=== PATIENT | female | born 1975 | race Caucasian/White ===

== ENCOUNTER 2024-08-19 15:18 | Outpatient (REF) | payer BC, SELFPAY ==
[2024-08-19 16:34] LABS: MANUAL DIFF FLAG NO
[2024-08-19 17:07] LABS: Basophils Percent Auto 0.5 % (0-2); Eosinophils Percent Auto 0.4 % (0-4); Hematocrit 37.2 % (37.0-47.0); Hemoglobin 12.6 g/dl (12.0-16.0); Imm Gran Abs Auto 0.02 X10*3/uL (0.00-0.03); Imm Gran Pct Auto 0.3 % (0.0-0.4); Lymphocytes Absolute Auto 2.1 X10*3/uL (1.2-4.9); Lymphocytes Percent Auto 28.7 % (20-40); Mean Corpuscular HGB Conc 33.9 g/dl (31.0-35.0); Mean Corpuscular Hemoglobin 29.4 pg (27.0-33.0); Mean Corpuscular Volume 86.7 fL (80.0-98.0); Mean Platelet Volume 9.8 fL (9.4-12.3); Monocytes Absolute Auto 0.5 X10*3/uL (0.1-1.2); Monocytes Percent Auto 6.3 % (2-11); Neutrophils Absolute Auto 4.6 x10*3/uL (2.0-8.3); Neutrophils Percent Auto 63.8 % (45-73); Platelet Count 293 X10*3/uL (160-400); Red Blood Count 4.29 X10*6/uL (4.20-5.50); Red Cell Distribution Width 12.5 % (11.0-16.0); White Blood Count 7.3 X10*3/uL (4.8-10.8)
[2024-08-19 17:46] LABS: Alanine Aminotransferase 17 U/L (0-31); Albumin Level 4.3 g/dL (3.5-5.0); Alkaline Phosphatase 68 U/L (39-117); Anion Gap 10 (12-20); Aspartate Amino Transferase 21 U/L (5-31); Bilirubin Total 0.2 mg/dL (0.0-1.0); Blood Urea Nitrogen 14 mg/dL (9-16); C Reactive Protein < 0.10 mg/dL (< or = 0.50); Calcium 9.1 mg/dL (8.4-10.2); Carbon Dioxide 25 mmol/L (22-29); Chloride 109 mmol/L (96-108); Estimated Glomerular Filt Rate > 60; Glucose Random 97 mg/dL (60-115); Sodium 140 mmol/L (135-145)
[2024-08-19 18:01] LABS: TSH reflex Free T4 2.51 uIU/mL (0.32-4.0)
[2024-08-21 20:03] LABS: Transglutaminase Ab IgG <1.0 U/mL; Transglutaminase IgA <1.0 U/mL
== END 2024-08-19 15:19 | disposition home or self-care (01) ==
LOC: HO.LAB 15:18
PROVIDERS: PCP Family Medicine; Visit Provider Nurse Practitioner
DX: Z01.818 Encounter for other preprocedural examination (principal); R19.7 Diarrhea, unspecified; Z91.09 Other allergy status, other than to drugs and biological substances
CPT/HCPCS: 36415; 80053; 84443; 85025; 86003; 86140; 86364

== ENCOUNTER 2024-08-19 15:18 | Outpatient (AMB) | payer BC, SELFPAY ==
--- NOTE | 2024-08-19 15:19 | A.OFFVIS_ITS ---
Vital Signs 08/19/24 15:24 Height 5 ft 4 in Weight 158 lb 11.725 oz BMI 27.2 BP 123/85 Blood Pressure Location Rt brachial Position Sitting Pulse 101 H Intake Visit Reasons: colonoscopy Intake Note: New patient in office today for colonoscopy screening. CC: Last colonoscopy per patient was 10 years ago at [facility] [place]. Patient was diagnosed with diverticulitis at that time. She is s/p anal fissure surgery last April at [facility] [place] w/ Dr. Ambriz. Patient also states that she has IBS. Frame Hand Required: No Accompanied by: Self / Same As Patient Allergies metronidazole [From Flagyl] Allergy (Intermediate, Verified 10/10/24 11:02) Rash sulfamethoxazole [From Bactrim] Allergy (Intermediate, Verified 10/10/24 11:02) Rash trimethoprim [From Bactrim] Allergy (Intermediate, Verified 10/10/24 11:02) Rash peppermint Adverse Reaction (Intermediate, Verified 10/10/24 11:02) Blister ERYTHROMYCIN Allergy (Severe, Uncoded 08/19/24 13:59) Anaphylaxis iodine contrast dye Allergy (Severe, Uncoded 08/19/24 15:29) Hives TINCTURE OF BENZOIN Allergy (Intermediate, Uncoded 08/19/24 13:59) Rash HPI HPI colonoscopy: Details: 49-year-old female here for preprocedural meeting to discuss a screening colonoscopy. He is referred by [facility]. PMX Asthma - childhood Migraines Nephrolithiasis Lactose intolerance IBS Raynaud's phenomenon Umbilical/ventral hernia History of diverticulitis with perf Lipomas Chronic fatigue syndrome * SURGICAL HISTORY History of ectopic Hernia surgery - ? unbilical [place] teeth extraction Lipoma removals * ALLERGIES Erythromycin-anaphylaxis Bactrim-rash Flagyl-rash Topical benzoin-rash Peppermint-blisters in mouth IVP dye with iodine * MEDITECH LABS: none TODAY'S VISIT She had a prior scope 10 years ago for TICS. She had rectal fissure surgery in April. She has IBS r/t lactose intolerance and bloating, and no upper GI problems. She will be coming back to see me about her IBS-D and has been having fecal urgency but has only used imodium. Her asthma is from childhood and no cardiac problems. She had a hard time coming out of her rectal fissure surgery, no other problems. No ID problems. Her father had colon polyps removed. [facility] Medical History Ectopic Surgical History S/P excision of lipoma H/O wisdom tooth extraction History of section Family History Mother Kidney malignant neoplasm Maternal Grandfather Esophageal cancer Maternal Uncle Leukemia Maternal Uncle Skin cancer Maternal Aunt History of hysterectomy Social History Alcohol intake: current Alcohol intake frequency: holidays/special occasions only Patient Tobacco Use Status: Never used Tobacco Review of Systems Const Denies fatigue, Denies fever(s), Denies night sweats, Denies poor appetite and Denies weight loss Eyes Details: glasses Reports requires corrective lenses ENT Reports Normal hearing present, Denies dental pain, Denies dysphagia, Denies hearing loss, Denies mouth pain, Denies odynophagia, Denies throat swelling, Denies tongue swelling and Reports other (Dentition adequate) Card Reports no additional complaints Resp Reports no additional complaints GI Details: Denies abdominal pain, Denies melena, Reports bloating, Denies hematochezia, Denies constipation, Denies GI cramping, Denies dysphagia, Denies excessive flatus, Denies early satiety, Denies heartburn, Reports diarrhea, Denies nausea, Denies odynophagia, Denies vomiting and Denies hematemesis Skin/Breast Denies pruritus, Denies lesions, Denies rash and Denies jaundice Neuro Reports Normal hearing present and Denies Abnormal speech present Endo Denies fatigue Aller/Immun Denies throat swelling and Denies tongue swelling Physical Exam Vital Signs: Last Vital Signs Pulse 101 H 08/19/24 15:24 BP 123/85 08/19/24 15:24 BMI result Body Mass Index 27.2 Const General: cooperative, no acute distress, well developed and well groomed Nutritional Appearance: average body habitus and well nourished Orientation/consciousness: oriented to person, oriented to place and oriented to time Limitations: No language barrier HEENT Head: Yes normocephalic and Yes atraumatic Eyes General: appearance normal, both eyes and all related structures Pupils: Equal, round and reactive pupils present Neck Neck: Yes normal visual inspection and Yes no lymphadenopathy Thyroid: Thyroid normal Resp Effort & Inspection: normal respiratory effort and able to speak in complete sentences Auscultation: clear to auscultation bilaterally Cardio Rate: regular rate Rhythm: regular rhythm Heart sounds: Normal, physiologic split S2 sound present Peripheral pulses: radial pulses present and posterior tibial pulses present GI Inspection: No distended, No Abdominal panniculus present and Yes obesity Palpation (GI): Soft to palpation, nontender, no guarding, not rigid and No hepatosplenomegaly present Percussion: Yes normal to percussion Auscultation: normal bowel sounds Rectal Exam - Female: deferred Skin General skin exam: no rashes or lesions noted, turgor normal, skin not dry, no jaundice, No spider nevi and no striae Rashes: no rashes Nails: normal Neuro General: oriented to person, oriented to place and oriented to time Cranial nerves: Yes Equal, round and reactive pupils present and Yes Normal hearing present Speech: No Abnormal speech present Extrem General: Yes normal to inspection, No clubbing, No cyanosis and No edema Psych Appearance: grossly normal and well kempt Mental Status: mental status grossly normal Speech and movement: Normal speech and movement present Affect: normal affect Attitude: cooperative Thought process: Normal thought process present and not confabulating Thought content: Normal thought content present Insight: Fair insight present (Psych) Judgement: Fair judgement present (Psych) Assessment & Plan Assessment & Plan (1) Pre-op examination: Code(s): Z01.818 - Encounter for other preprocedural examination Category: Medical (2) Diarrhea: Code(s): R19.7 - Diarrhea, unspecified Category: Medical Plan She had a prior scope 10 years ago for TICS. She had rectal fissure surgery in April. She has IBS r/t lactose intolerance and bloating, and no upper GI problems. She will be coming back to see me about her IBS-D and has been having fecal urgency but has only used imodium. Her asthma is from childhood and no cardiac problems. She had a hard time coming out of her rectal fissure surgery, no other problems. No ID problems. Her father had colon polyps removed. Orders: Orders Comprehensive Met. Panel 08/19/24 Z01.818 - Encounter for other preprocedural examination Transglutaminase IgA 08/19/24 R19.7 - Diarrhea, unspecified Pancreatic Elastase-1 08/19/24 R19.7 - Diarrhea, unspecified TSH reflex Free T4 08/19/24 R19.7 - Diarrhea, unspecified Complete Blood Count Auto Diff 08/19/24 Z01.818 - Encounter for other preprocedural examination Colonoscopy - GI Use Only 08/19/24 Z01.818 - Encounter for other preprocedural examination Rast Allergen 08/19/24 R19.7 - Diarrhea, unspecified Transglutaminase Ab IgG 08/19/24 R19.7 - Diarrhea, unspecified C Reactive Protein 08/19/24 R19.7 - Diarrhea, unspecified Medications: New polyethylene glycol 3350 (Miralax) 238 grams PO ONCE 238 grams 0RF colonoscopy prep 1 day bisacodyl (Dulcolax (bisacodyl)) 10 mg (2 x 5 mg) PO BEDTIME 4 tabs 0RF 2 days Coding Level of Care Code New Pt Level 3 (83464) Diagnoses Pre-op examination Z.818 Diarrhea R19.7
[2024-08-19 15:24] VITALS: BP 123/85; PULSE 101; BMI 27.2
== END 2024-08-20 15:28 | disposition home or self-care (01) ==
PROVIDERS: PCP Family Medicine; Visit Provider Nurse Practitioner
DX: Z01.818 Encounter for other preprocedural examination (principal); Z12.11 Encounter for screening for malignant neoplasm of colon; R19.7 Diarrhea, unspecified
CPT/HCPCS: S0285

== ENCOUNTER 2024-10-06 14:30 | Outpatient (REF) | payer BC, SELFPAY ==
[2024-10-13 18:47] LABS: Pancreatic Elastase-1 >800 mcg/g (>200)
== END 2024-10-06 14:31 | disposition home or self-care (01) ==
LOC: HO.LNP 14:30
PROVIDERS: Visit Provider Nurse Practitioner
DX: R19.7 Diarrhea, unspecified (principal)
CPT/HCPCS: 82656

== ENCOUNTER 2024-10-10 10:52 | Outpatient (AMB) | payer BC, SELFPAY ==
[2024-10-10 10:54] VITALS: BP 126/65; PULSE 71; BMI 26.6
--- NOTE | 2024-10-10 10:54 | MHC.OFFVIS ---
Vital Signs 10/10/24 10:54 Height 5 ft 4 in Weight 154 lb 12.232 oz BMI 26.6 BP 126/65 Blood Pressure Location Lt brachial Position Sitting Pulse 71 Intake Visit Reasons: Discuss IBS Intake Note: Ana presents in office today in follow up of labs and IBS. CC: Patient reports abdominal bloating, occasional abd pain, and constipation alternating with diarrhea. She also reports acid reflux about once a month. Per patient she never picked up bowel prep for colonoscopy as she was not aware it was sent to her pharmacy. Jacquard Loom Carpet Weaver Required: No Accompanied by: Self / Same As Patient Allergies metronidazole [From Flagyl] Allergy (Intermediate, Verified 10/10/24 11:02) Rash sulfamethoxazole [From Bactrim] Allergy (Intermediate, Verified 10/10/24 11:02) Rash trimethoprim [From Bactrim] Allergy (Intermediate, Verified 10/10/24 11:02) Rash peppermint Adverse Reaction (Intermediate, Verified 10/10/24 11:02) Blister ERYTHROMYCIN Allergy (Severe, Uncoded 08/19/24 13:59) Anaphylaxis iodine contrast dye Allergy (Severe, Uncoded 08/19/24 15:29) Hives TINCTURE OF BENZOIN Allergy (Intermediate, Uncoded 08/19/24 13:59) Rash HPI HPI Discuss IBS: Details: Assessment & Plan (1) Pre-op examination: Code(s): Z01.818 - Encounter for other preprocedural examination Category: Medical (2) Diarrhea: Code(s): R19.7 - Diarrhea, unspecified Category: Medical Orders: Orders Comprehensive Met. Panel Today Z01.818 - Encounter for other preprocedural examination Transglutaminase IgA Today R19.7 - Diarrhea, unspecified Pancreatic Elastase-1 Today R19.7 - Diarrhea, unspecified TSH reflex Free T4 Today R19.7 - Diarrhea, unspecified Complete Blood Count Auto Diff Today Z01.818 - Encounter for other preprocedural examination Colonoscopy - GI Use Only Today Z01.818 - Encounter for other preprocedural examination Rast Allergen Today R19.7 - Diarrhea, unspecified Transglutaminase Ab IgG Today R19.7 - Diarrhea, unspecified C Reactive Protein Today R19.7 - Diarrhea, unspecified Medications: New polyethylene glycol 3350 (Miralax) 238 grams PO ONCE 1 day 238 grams 0RF colonoscopy prep bisacodyl (Dulcolax (bisacodyl)) 10 mg (2 x 5 mg) PO BEDTIME 2 days 4 tabs 0RF She had a prior scope 10 years ago for TICS. She had rectal fissure surgery in April. She has IBS r/t lactose intolerance and bloating, and no upper GI problems. She will be coming back to see me about her IBS-D and has been having fecal urgency but has only used imodium. Her asthma is from childhood and no cardiac problems. She had a hard time coming out of her rectal fissure surgery, no other problems. No ID problems. Her father had colon polyps removed. Labs: Laboratory Tests 08/19/24 16:33 WBC 7.3 Hgb 12.6 Hct 37.2 Plt Count 293 Estimated GFR > 60 Total Bilirubin 0.2 AST 21 ALT 17 Alkaline Phosphatase 68 C-Reactive Protein < 0.10 TSH 2.51 Tiss Transglutamin IgG <1.0 Tiss Transglutamin IgA <1.0 RAST PANEL SHOWS NO SIGNIFICANT FOOD ALLERGIES, PANCREATIC A LAST TASTE IS STILL PENDING. COLONOSCOPY BIOPSY TODAY'S VISIT PANCREATIC A LAST TASTE IS STILL PENDING. She will have bowel irritability with severe fecal urgency and diarrhea about every other day. We reviewed the test results and educated her about possible EPI, microscopic collitis and/or functional diarrhea. With her lactose intol, ? EPI will start trial of creon. Could consider bentyl, imipramine etc. but at times she has CIC. Used imodium in the past. But this occurs even w/o the imodium but her more solid bowel movements are followed by diarrhea. ROV next available. [facility] Medical History Ectopic Surgical History S/P excision of lipoma H/O wisdom tooth extraction History of section Family History Mother Kidney malignant neoplasm Maternal Grandfather Esophageal cancer Maternal Uncle Leukemia Maternal Uncle Skin cancer Maternal Aunt History of hysterectomy Social History Alcohol intake: current Alcohol intake frequency: holidays/special occasions only Patient Tobacco Use Status: Never used Tobacco Review of Systems Const Denies fatigue, Denies fever(s), Denies night sweats, Denies poor appetite and Denies weight loss Eyes Details: glasses Reports requires corrective lenses ENT Reports Normal hearing present, Denies dental pain, Denies dysphagia, Denies hearing loss, Denies mouth pain, Denies odynophagia, Denies throat swelling, Denies tongue swelling and Reports other (Dentition adequate) Card Reports no additional complaints Resp Reports no additional complaints GI Details: Fecal urgency Denies abdominal pain, Denies melena, Denies bloating, Denies hematochezia, Denies constipation, Denies GI cramping, Denies dysphagia, Denies excessive flatus, Denies early satiety, Denies heartburn, Reports diarrhea, Denies nausea, Denies odynophagia, Denies vomiting and Denies hematemesis Skin/Breast Denies pruritus, Denies lesions, Denies rash and Denies jaundice Neuro Reports Normal hearing present and Denies Abnormal speech present Endo Denies fatigue Aller/Immun Denies throat swelling and Denies tongue swelling Physical Exam Vital Signs: Last Vital Signs Pulse 71 10/10/24 10:54 BP 126/65 10/10/24 10:54 BMI result Body Mass Index 26.6 Const General: cooperative, no acute distress, well developed and well groomed Nutritional Appearance: average body habitus and well nourished Orientation/consciousness: oriented to person, oriented to place and oriented to time Limitations: No language barrier HEENT Head: Yes normocephalic and Yes atraumatic Eyes General: appearance normal, both eyes and all related structures Pupils: Equal, round and reactive pupils present Neck Neck: Yes normal visual inspection and Yes no lymphadenopathy Thyroid: Thyroid normal Resp Effort & Inspection: normal respiratory effort and able to speak in complete sentences Auscultation: clear to auscultation bilaterally Cardio Rate: regular rate Rhythm: regular rhythm Heart sounds: Normal, physiologic split S2 sound present Peripheral pulses: radial pulses present and posterior tibial pulses present GI Inspection: No distended and No Abdominal panniculus present Palpation (GI): Soft to palpation, nontender, no guarding, not rigid and No hepatosplenomegaly present Percussion: Yes normal to percussion Auscultation: normal bowel sounds Rectal Exam - Female: deferred Skin General skin exam: no rashes or lesions noted, turgor normal, skin not dry, no jaundice, No spider nevi and no striae Rashes: no rashes Nails: normal Neuro General: oriented to person, oriented to place and oriented to time Cranial nerves: Yes Equal, round and reactive pupils present and Yes Normal hearing present Speech: No Abnormal speech present Extrem General: Yes normal to inspection, No clubbing, No cyanosis and No edema Psych Appearance: grossly normal and well kempt Mental Status: mental status grossly normal Speech and movement: Normal speech and movement present Affect: normal affect Attitude: cooperative Thought process: Normal thought process present and not confabulating Thought content: Normal thought content present Insight: Fair insight present (Psych) Judgement: Fair judgement present (Psych) Results Reviewed Results Reviewed: Laboratory Tests 08/19/24 16:33 WBC 7.3 Hgb 12.6 Hct 37.2 Plt Count 293 Estimated GFR > 60 Total Bilirubin 0.2 AST 21 ALT 17 Alkaline Phosphatase 68 C-Reactive Protein < 0.10 TSH 2.51 Tiss Transglutamin IgG <1.0 Tiss Transglutamin IgA <1.0 RAST PANEL SHOWS NO SIGNIFICANT FOOD ALLERGIES, PANCREATIC A LAST TASTE IS STILL PENDING Assessment & Plan Assessment & Plan (1) Diarrhea: Code(s): R19.7 - Diarrhea, unspecified Category: Medical (2) Lactose intolerance: Code(s): E73.9 - Lactose intolerance, unspecified Category: Medical (3) Pancreatic insufficiency: Code(s): K86.89 - Other specified diseases of pancreas Category: Medical Plan PANCREATIC A LAST TASTE IS STILL PENDING. She will have bowel irritability with severe fecal urgency and diarrhea about every other day. We reviewed the test results and educated her about possible EPI, microscopic collitis and/or functional diarrhea. With her lactose intol, ? EPI will start trial of creon. Could consider bentyl, imipramine etc. but at times she has CIC. Used imodium in the past. But this occurs even w/o the imodium but her more solid bowel movements are followed by diarrhea. ROV next available. COLONOSCOPY BIOPSY Medications: New [id number] 24,000-76,000 -120,000 unit (Creon) 2 caps PO BID 120 caps 6RF 30 days K86.89 - Other specified diseases of pancreas Coding Level of Care Code Est Pt Level 4 (61429) Diagnoses Diarrhea R19.7 Lactose intolerance E73.9 Pancreatic insufficiency K86.89 Time Spent (min) 31
== END 2024-10-10 11:52 | disposition home or self-care (01) ==
PROVIDERS: PCP Family Medicine; Visit Provider Nurse Practitioner
DX: R19.7 Diarrhea, unspecified (principal); E73.9 Lactose intolerance, unspecified; K86.89 Other specified diseases of pancreas
CPT/HCPCS: 99214

== ENCOUNTER 2025-02-13 15:08 | Outpatient (AMB) | payer BC, SELFPAY ==
--- NOTE | 2025-02-13 15:12 | MHC.OFFVIS ---
Vital Signs 02/13/25 15:18 Height 5 ft 4 in Weight 127 lb 13.89 oz BMI 21.9 BP 113/47 L Blood Pressure Location Lt brachial Position Sitting Pulse 90 Pulse Source Pulse Oximeter Pulse Oximetry (%) 99 Oxygen Delivery Method Room Air Intake Visit Reasons: Follow up IBS-D Intake Note: Patient follow up for Follow up IBS & Diarrhea. Allergies metronidazole [From Flagyl] Allergy (Intermediate, Verified 02/13/25 15:21) Rash sulfamethoxazole [From Bactrim] Allergy (Intermediate, Verified 02/13/25 15:21) Rash trimethoprim [From Bactrim] Allergy (Intermediate, Verified 02/13/25 15:21) Rash peppermint Adverse Reaction (Intermediate, Verified 02/13/25 15:21) Blister ERYTHROMYCIN Allergy (Severe, Uncoded 02/13/25 15:21) Anaphylaxis iodine contrast dye Allergy (Severe, Uncoded 02/13/25 15:21) Hives TINCTURE OF BENZOIN Allergy (Intermediate, Uncoded 02/13/25 15:21) Rash HPI HPI Follow up IBS-D: Details: Assessment & Plan (1) Diarrhea: Code(s): R19.7 - Diarrhea, unspecified Category: Medical (2) Lactose intolerance: Code(s): E73.9 - Lactose intolerance, unspecified Category: Medical (3) Pancreatic insufficiency: Code(s): K86.89 - Other specified diseases of pancreas Category: Medical Plan PANCREATIC A LAST TASTE IS STILL PENDING. She will have bowel irritability with severe fecal urgency and diarrhea about every other day. We reviewed the test results and educated her about possible EPI, microscopic collitis and/or functional diarrhea. With her lactose intol, ? EPI will start trial of creon. Could consider bentyl, imipramine etc. but at times she has CIC. Used imodium in the past. But this occurs even w/o the imodium but her more solid bowel movements are followed by diarrhea. ROV next available. Assessment & Plan (1) Diarrhea: Code(s): R19.7 - Diarrhea, unspecified Category: Medical (2) Lactose intolerance: Code(s): E73.9 - Lactose intolerance, unspecified Category: Medical (3) Pancreatic insufficiency: Code(s): K86.89 - Other specified diseases of pancreas Category: Medical COLONOSCOPY Not yet scheduled BIOPSY Medications: New sdesrx-weuobrma-lhcdorf 24,000-76,000 -120,000 unit (Creon) 2 caps PO BID 120 caps 6RF 30 days K86.89 - Other specified diseases of pancreas Medications: New nkuqdr-zevatrqm-hscowtg 24,000-76,000 -120,000 unit (Creon) 2 caps PO BID 120 caps 6RF 30 days K86.89 - Other specified diseases of pancreas Laboratory Tests 10/06/24 14:30 Stool Pancreat Elastase >800 CT Abd/Pelvis W/O Contrast 02/12/2025 [facility] [place] Reason: LEFT LOWER QUADRANT ABDOMEN PAIN TECHNIQUE: Spiral CT through the abdomen and pelvis without IV contrast formatted in 3 planes. This study was performed without oral contrast. Weight-based protocol using automatic tube modulation was used to optimize exposure parameters. CTDIvol Body: 9.43 mGy, DLP Body: 450 mGy*cm. COMPARISON: CT abdomen pelvis 01/02/2024. FINDINGS: Nail Tech View Findings, Lines and Tubes: None. Visualized Chest: Lung bases are clear. No pleural effusion. The heart is normal in size. No pericardial effusion. Diaphragm: Normal. Liver: Single subcentimeter circumscribed low-density lesion likely represent benign hepatic cyst (in the absence of known malignancy). Gallbladder: No CT evidence of gallbladder pathology. Bile ducts: No biliary ductal dilation. Spleen: Normal. Pancreas: Normal. Adrenal glands: Normal. Kidneys and ureters: No hydronephrosis, or noncontrast evidence of suspicious masses. Tiny hyperdensities in the right lower pole, likely nonobstructing stones. 2 mm nonobstructing stone in the left lower pole. Bladder: Normal. Reproductive organs: Mildly enlarged uterus with a prominent endometrial lining measure approximately 10 mm (sagittal image 60), poorly assessed on noncontrast exam. Stomach, small bowel, and large bowel: The stomach is normal. The small and large bowel are normal in caliber. No evidence of obstruction. Moderate scattered colonic diverticulosis. Mild stool retention. In the left lower quadrant, there is moderate inflammatory changes including fat stranding surrounding a hyperemic and edematous diverticulum (2:72) at the sigmoid colon, with several other surrounding inflamed diverticuli. There is no evidence of perforation or abscess formation. Appendix: Normal. Peritoneum and retroperitoneum: No pneumoperitoneum. There is a small amount of simple fluid in the dependent portion of the pelvis. No omental or mesenteric lesions. Lymph nodes: No enlarged lymph nodes. Blood vessels: Mild vascular calcifications but no aneurysm. Abdominal and pelvic wall: Unremarkable. Bones: No acute abnormality. IMPRESSION: Acute diverticulitis of the sigmoid colon. No perforation. No abscess. Moderate colonic diverticulosis. Mild stool retention. Mildly enlarged uterus with a prominent endometrium, correlate with menopausal status and clinical symptoms. Further evaluation with ultrasound can be considered. Nonobstructing nephrolithiasis. The first impression above was relayed to Genesis Parkinson MD by Dr. Emelyn Koenig via Screen[employer] without acknowledgement on 02/12/2025 at 2:28 PM. TODAY'S VISIT She had an episode of diverticulitis, she had a prior bout 10 year ago, She was tx'ed with augmentin by Dr. Parkinson. Had the CT at [facility]. Overall, she is doing very well on the creon, a big change in the positive direction.SHe is not having to run to the [place] all of the time. However, she has cut out most breads and carbs because these make her feel bloated, and has lost 25 lbs. She says her PCP is concerned about this, but her drastic diet change where she is eating just meats and vegetable is a likely explanation. Her PCP did some blood work, but I do not have access to this to see if TSH was schecked or if there are any concerning metabolic factors. WIll order TSH, UA, Hga1C as she has a strong FHX of diabetes. However, she is actually feeling well with better energy. Sh ehas chronic polydipsia. ROV 6 mos. [facility] Medical History Ectopic Surgical History S/P excision of lipoma H/O wisdom tooth extraction History of section Family History Mother Kidney malignant neoplasm Maternal Grandfather Esophageal cancer Maternal Uncle Leukemia Maternal Uncle Skin cancer Maternal Aunt History of hysterectomy Social History Alcohol intake: current Alcohol intake frequency: holidays/special occasions only Patient Tobacco Use Status: Never used Tobacco Review of Systems Const Denies fatigue, Denies fever(s), Denies night sweats, Denies poor appetite and Denies weight loss Eyes Details: glasses Reports requires corrective lenses ENT Reports Normal hearing present, Denies dental pain, Denies dysphagia, Denies hearing loss, Denies mouth pain, Denies odynophagia, Denies throat swelling, Denies tongue swelling and Reports other (Dentition adequate) Card Reports no additional complaints Resp Reports no additional complaints GI Details: Denies abdominal pain, Denies melena, Denies bloating, Denies hematochezia, Denies constipation, Denies GI cramping, Denies dysphagia, Denies excessive flatus, Denies early satiety, Denies heartburn, Denies diarrhea, Reports loose stools, Denies nausea, Denies odynophagia, Denies vomiting and Denies hematemesis Skin/Breast Denies pruritus, Denies lesions, Denies rash and Denies jaundice Neuro Reports Normal hearing present and Denies Abnormal speech present Endo Denies fatigue Aller/Immun Denies throat swelling and Denies tongue swelling Physical Exam Vital Signs: Last Vital Signs Pulse 90 02/13/25 15:18 BP 113/47 L 02/13/25 15:18 Pulse Ox 99 02/13/25 15:18 Oxygen Delivery Method Room Air 02/13/25 15:18 BMI result Body Mass Index 21.9 Const General: cooperative, no acute distress, well developed and well groomed Nutritional Appearance: average body habitus and well nourished Orientation/consciousness: oriented to person, oriented to place and oriented to time Limitations: No language barrier HEENT Head: Yes normocephalic and Yes atraumatic Eyes General: appearance normal, both eyes and all related structures Pupils: Equal, round and reactive pupils present Neck Neck: Yes normal visual inspection and Yes no lymphadenopathy Thyroid: Thyroid normal Resp Effort & Inspection: normal respiratory effort and able to speak in complete sentences Auscultation: clear to auscultation bilaterally Cardio Rate: regular rate Rhythm: regular rhythm Heart sounds: Normal, physiologic split S2 sound present Peripheral pulses: radial pulses present and posterior tibial pulses present GI Inspection: No distended and No Abdominal panniculus present Palpation (GI): Soft to palpation, nontender, no guarding, not rigid and No hepatosplenomegaly present Percussion: Yes normal to percussion Auscultation: normal bowel sounds Rectal Exam - Female: deferred Skin General skin exam: no rashes or lesions noted, turgor normal, skin not dry, no jaundice, No spider nevi and no striae Rashes: no rashes Nails: normal Neuro General: oriented to person, oriented to place and oriented to time Cranial nerves: Yes Equal, round and reactive pupils present and Yes Normal hearing present Speech: No Abnormal speech present Extrem General: Yes normal to inspection, No clubbing, No cyanosis and No edema Psych Appearance: grossly normal and well kempt Mental Status: mental status grossly normal Speech and movement: Normal speech and movement present Affect: normal affect Attitude: cooperative Thought process: Normal thought process present and not confabulating Thought content: Normal thought content present Insight: Fair insight present (Psych) Judgement: Fair judgement present (Psych) Results Reviewed Results Reviewed: aboratory Tests 10/06/24 14:30 Stool Pancreat Elastase >800 CT Abd/Pelvis W/O Contrast 02/12/2025 [facility] [place] Reason: LEFT LOWER QUADRANT ABDOMEN PAIN TECHNIQUE: Spiral CT through the abdomen and pelvis without IV contrast formatted in 3 planes. This study was performed without oral contrast. Weight-based protocol using automatic tube modulation was used to optimize exposure parameters. CTDIvol Body: 9.43 mGy, DLP Body: 450 mGy*cm. COMPARISON: CT abdomen pelvis 01/02/2024. FINDINGS: Nail Tech View Findings, Lines and Tubes: None. Visualized Chest: Lung bases are clear. No pleural effusion. The heart is normal in size. No pericardial effusion. Diaphragm: Normal. Liver: Single subcentimeter circumscribed low-density lesion likely represent benign hepatic cyst (in the absence of known malignancy). Gallbladder: No CT evidence of gallbladder pathology. Bile ducts: No biliary ductal dilation. Spleen: Normal. Pancreas: Normal. Adrenal glands: Normal. Kidneys and ureters: No hydronephrosis, or noncontrast evidence of suspicious masses. Tiny hyperdensities in the right lower pole, likely nonobstructing stones. 2 mm nonobstructing stone in the left lower pole. Bladder: Normal. Reproductive organs: Mildly enlarged uterus with a prominent endometrial lining measure approximately 10 mm (sagittal image 60), poorly assessed on noncontrast exam. Stomach, small bowel, and large bowel: The stomach is normal. The small and large bowel are normal in caliber. No evidence of obstruction. Moderate scattered colonic diverticulosis. Mild stool retention. In the left lower quadrant, there is moderate inflammatory changes including fat stranding surrounding a hyperemic and edematous diverticulum (2:72) at the sigmoid colon, with several other surrounding inflamed diverticuli. There is no evidence of perforation or abscess formation. Appendix: Normal. Peritoneum and retroperitoneum: No pneumoperitoneum. There is a small amount of simple fluid in the dependent portion of the pelvis. No omental or mesenteric lesions. Lymph nodes: No enlarged lymph nodes. Blood vessels: Mild vascular calcifications but no aneurysm. Abdominal and pelvic wall: Unremarkable. Bones: No acute abnormality. IMPRESSION: Acute diverticulitis of the sigmoid colon. No perforation. No abscess. Moderate colonic diverticulosis. Mild stool retention. Mildly enlarged uterus with a prominent endometrium, correlate with menopausal status and clinical symptoms. Further evaluation with ultrasound can be considered. Nonobstructing nephrolithiasis. The first impression above was relayed to Genesis Parkinson MD by Dr. Emelyn Koenig via [employer]Hits without acknowledgement on 02/12/2025 at 2:28 PM. Assessment & Plan Assessment & Plan (1) Pancreatic insufficiency: Code(s): K86.89 - Other specified diseases of pancreas Category: Medical (2) Unexplained weight loss: Code(s): R63.4 - Abnormal weight loss Category: Medical (3) Polydipsia: Code(s): R63.1 - Polydipsia Category: Medical Plan She had an episode of diverticulitis, she had a prior bout 10 year ago, She was tx'ed with augmentin by Dr. Parkinson. Had the CT at [facility]. Overall, she is doing very well on the creon, a big change in the positive direction.She is not having to run to the [place] all of the time. However, she has cut out most breads and carbs because these make her feel bloated, and has lost 25 lbs. She says her PCP is concerned about this, but her drastic diet change where she is eating just meats and vegetable is a likely explanation. Her PCP did some blood work, but I do not have access to this to see if TSH was checked or if there are any concerning metabolic factors. Will order TSH, UA, Hga1C as she has a strong FHX of diabetes. However, she is actually feeling well with better energy. She has chronic polydipsia. ROV 6 mos. Orders: Orders TSH reflex Free T4 Today K86.89 - Other specified diseases of pancreas, R63.1 - Polydipsia, R63.4 - Abnormal weight loss Hemoglobin A1c Today K86.89 - Other specified diseases of pancreas, R63.1 - Polydipsia, R63.4 - Abnormal weight loss UA CC w/rflx Micro + Cult Today R63.1 - Polydipsia, R63.4 - Abnormal weight loss Medications: New sod sulf-pot chloride-mag sulf 1.479-0.188- 0.225 gram (Sutab) PO PER PKG DIR for colonoscopy prep 24 tabs 0RF Coding Level of Care Code Est Pt Level 3 (91010) Diagnoses Pancreatic insufficiency K86.89 Unexplained weight loss R63.4 Polydipsia R63.1
--- OUTSIDE RECORDS SUMMARY | 2025-02-13 15:12 | XMS_ITS | Clinical Summary ---
Author Organization [facility] Address [address] [place] [address] Care Team Providers Care Binder Selector Name Role Phone Pcp, No Primary Care Provider Unavailabl e Allergies Active Allergy Reactions Criticality Noted Date Comments Adhesives/Tape Rash/Dermatitis Low 08/03/2024 Benzoin Unknown/Patient and Family Unable to Define Medium 08/03/2024 Erythromycin Anaphylaxis High 08/03/2024 Iodinated Contrast Media Hives Medium 08/03/2024 Metronidazole Rash/Dermatitis Low 07/11/2012 rash Sulfadiazine Hives,Rash/Dermatitis Medium 08/03/2024 Sulfamethoxazole-Trimethopri m Hives Medium 08/03/2024 Medications No known medications Active Problems Problem Noted Date Diagnosed Date Anal fissure 08/03/2024 Colon polyp 04/15/2015 Overview (08/03/2024): 04/15/2015: Tubular adenoma. Next colonoscopy 5 years. Diverticulitis of intestine with perforation Overview (08/03/2024): IMO update Anxiety 07/11/2012 Asthma 07/11/2012 Depression 07/11/2012 IBS (irritable bowel syndrome) 07/11/2012 Overview (08/03/2024): Diarrhea predominant Social History Tobacco Use Types Packs/Day Years Used Date Smoking Tobacco: Never Smokeless Tobacco: Never Tobacco Cessation:Counseling Given: Not Answered Comments Unknown Sex and Gender Information Value Date Recorded Sex Assigned at Not on file Legal Sex Female 9:33 AM EDT Gender Identity Not on file Sexual Orientation Not on file Last Filed Vital Signs Vital Sign Reading Time Taken Comments Blood Pressure 115/76 08/03/2024 9:49 AM EDT Pulse 82 08/03/2024 9:49 AM EDT Temperature 36.8 ??C (98.3 ??F) 08/03/2024 9:49 AM ED T Respiratory Rate 16 08/03/2024 9:49 AM EDT Oxygen Saturation 99% 08/03/2024 9:49 AM EDT Inhaled Oxygen Concentration - - Weight 68 kg (150 lb) 08/03/2024 9:49 AM EDT Height 162.6 cm (5' 4 ) 08/03/2024 9:49 AM EDT Body Mass Index 25.75 08/03/2024 9:49 AM EDT Plan of Treatment Health Maintenance Due Date Last Done Comments Hepatitis C Virus Screening 1975 HIV Screening 01/02/1988 DTaP/Tdap/Td Vaccines (1 - Tdap) 1994 Hepatitis B Vaccines (1 of 3 - 19+ 3-dose series) 1994 Pneumococcal Vaccines 50+ (1 of 2 - PCV) 1994 Pap Smear (Ages 21-65) 01/02/1996 Mammogram 2015 Colonoscopy 01/02/2020 COVID-19 Vaccine (1 - season) 2024 Zoster (Shingles) Vaccine (1 of 2) 2025 Influenza Vaccine 05/08/2025 10/06/2013, 07/11/2012 Insurance [facility] - HMO Care Teams Binder Selector Relationship Specialty Start Date End Date Pcp, No PCP - General General Medicine 08/03/24
--- OUTSIDE RECORDS SUMMARY | 2025-02-13 15:12 | XMS_ITS ---
Author Name [facility] Organization Unknown Encounters Encounter Type Encounter Reason Primary Diagnosis Location Date Ambulatory Injury of conjunctiva and corneal abrasion without foreign body, left eye, initial encounter Injury of conjunctiva and corneal abrasion without foreign body, left eye, initial encounter [email or web address] 08/03/2024 Care Team Organization Name Specialty Phone Email Start Date End Da te [email or web address] 08/06/2024 12/24/2024 [email or web address] 08/03/2024 [email or web address] NO PCP Primary Care 08/03/2024 [facility], [facility] 08/02/2023
--- OUTSIDE RECORDS SUMMARY | 2025-02-13 15:12 | XMS_ITS | Encounter Summary ---
Author Organization [facility] Address [address] [place] [address] Care Team Providers Care Ophthalmic Lens Inspector Name Role Phone Pcp, No Primary Care Provider Unavailabl e Encounter Details Date Type Department Care Team (Late st Contact Info) Description 08/03/2024 [address]anned Document [address] [place] [id number] Provider, Generic Social History Tobacco Use Types Packs/Day Years Used Date Smoking Tobacco: Never Smokeless Tobacco: Never Comments Unknown Sex and Gender Information Value Date Recorded Sex Assigned at Not on file Legal Sex Female 9:33 AM EDT Gender Identity Not on file Sexual Orientation Not on file documented as of this encounter Plan of Treatment Not on file documented as of this encounter Visit Diagnoses Not on filedocumented in this encounter Care Teams Ophthalmic Lens Inspector Relationship Specialty Start Date End Date Pcp, Esha PCP - General General Medicine 08/03/24 documented as of this encounter
[2025-02-13 15:18] VITALS: BP 113/47; PULSE 90; O2SAT 99; BMI 21.9
== END 2025-02-13 15:45 | disposition home or self-care (01) ==
LOC: HO.HGI 15:09
PROVIDERS: PCP Family Medicine; Visit Provider Nurse Practitioner
DX: K86.89 Other specified diseases of pancreas (principal); R63.4 Abnormal weight loss; R63.1 Polydipsia
CPT/HCPCS: 99213

== ENCOUNTER 2025-02-13 15:08 | Outpatient (REF) | payer BC, SELFPAY ==
--- OUTSIDE RECORDS SUMMARY | 2025-02-13 15:52 | XMS_ITS | Encounter Summary ---
Author Organization [facility] Address [address] [place] [address] Care Team Providers Care Java Web Architect Name Role Phone Community, Pcp Primary Care Provider Unavailabl e Encounter Details Date Type Department Care Team Description 05/18/2021 Paint Roller Assembler Report Medical Records [address] [place] [id number] Geovanny Harkins MD Social History Tobacco Use Types Packs/Day Years Used Date Smoking Tobacco: Never Smokeless Tobacco: Never Alcohol Use Standard Drinks/Week Comments Yes 0 (1 standard drink = 0.6 oz pur e alcohol) 2-3 times per year Sex Assigned at Date Recorded Not on file documented as of this encounter Plan of Treatment Not on file documented as of this encounter Visit Diagnoses Not on filedocumented in this encounter Care Teams Java Web Architect Relationship Specialty Start Date End Date Community, Pcp PCP - General Internal Medicine 07/02/15 documented as of this encounter
--- OUTSIDE RECORDS SUMMARY | 2025-02-13 15:52 | XMS_ITS | Encounter Summary ---
Author Organization [facility] Address [address] [place] [address] Care Team Providers Care Band Sawyer Name Role Phone Annie-Liliya Hernandez MD Primary Care Provider [facility], Pcp Primary Care Provider Unavailabl e Encounter Details Date Type Department Care Team Description 01/15/2015 Hospital Medical Records [address] [place] [address] Social History Tobacco Use Types Packs/Day Years [...] on filedocumented in this encounter Care Teams Band Sawyer Relationship Specialty Start Date End Date Liliya Virk MD PCP - General Internal Medicine 10/29/14 [facility], Pcp PCP - General Internal Medicine 07/02/15 documented as of this encounter
[2025-02-13 16:30] LABS: Estimated Average Glucose 100 mg/dL; Hemoglobin A1C 106.6206 umol/L; Hemoglobin A1c % 5.1 % (<6.0)
[2025-02-13 16:32] LABS: Appearance Urine Clear; Color Urine Yellow; Glucose Urine UA Negative (Negative); Leukocyte Esterase Urine Negative (Negative); Nitrite Urine Negative (Negative); PH 6.5 (5.0-9.0); UMIC TRIGGER UACC YES; Urine Blood Moderate (2+) (Negative); Urine Ketones 15 mg/dL (Negative); Urine Protein Trace mg/dL (Neg-Trace)
[2025-02-13 16:39] LABS: Bacteria Urine None Seen (None Seen); Hyaline Casts Urine 0-2 /LPF (0-2); Squamous Epithelial Cell Urine 0-2 /HPF (0-2); WBC Urine 0-5 /HPF (0-5)
== END 2025-02-13 15:09 | disposition home or self-care (01) ==
LOC: HO.LAB 15:08
PROVIDERS: PCP Family Medicine; Visit Provider Nurse Practitioner
DX: K86.89 Other specified diseases of pancreas (principal); R63.1 Polydipsia; R63.4 Abnormal weight loss; Z13.1 Encounter for screening for diabetes mellitus
CPT/HCPCS: 36415; 81001; 83036; 84443

== ENCOUNTER 2025-07-17 08:46 | Day surgery (SDC) | payer BC, SELFPAY ==
--- OUTSIDE RECORDS SUMMARY | 2025-07-10 16:18 | XMS_ITS | Encounter Summary ---
Author Organization [facility] Address [address] [place] [address] Care Team Providers Care Cheese Processor Name Role Phone Pcp, No Primary Care Provider Unavailabl e Encounter Details Date Type Department Care Team (Late st Contact Info) Description 08/03/2024 Scanned Document [address] [place] [id number] Provider, Generic Social History Tobacco Use [...] on filedocumented in this encounter Care Teams Cheese Processor Relationship Specialty Start Date End Date Pcp, Esha PCP - General General Medicine 08/03/24 documented as of this encounter
--- OUTSIDE RECORDS SUMMARY | 2025-07-10 16:18 | XMS_ITS | Clinical Summary ---
Author Organization [facility] Address [address] [place] [address] Care Team Providers Care Phonograph Mechanic Name Role Phone Pcp, No Primary Care [...] 82 08/03/2024 9:49 AM EDT Temperature 36.8 C (98.3 F) 08/03/2024 9:49 AM EDT Respiratory Rate 16 08/03/2024 9:49 AM EDT [...] (Ages 21-65) 01/02/1996 Mammogram 2015 Colonoscopy 01/02/2020 Zoster (Shingles) Vaccine (1 of 2) 2025 Influenza Vaccine 05/08/2025 10/06/2013, 07/11/2012 COVID-19 Vaccine ( - season) [address] [place] [address] - HMO Care Teams Phonograph Mechanic Relationship Specialty Start Date End Date Pcp, No PCP - General General Medicine 08/03/24
[2025-07-10 16:31] VITALS: BMI 21.8
--- NOTE | 2025-07-16 08:50 | HO.ANESPROP2 ---
Documented by User: Jenelle Thornton NP 07/16/25 08:51 HPI - Anesthesia Eval Consult details Narrative: 50yo F for Colonoscopy PMFSH Active Problems Active Problems: All Active Problems Polydipsia (Acute) Unexplained weight loss (Acute) Pancreatic insufficiency (Acute) Diarrhea (Acute) Pre-op examination (Acute) Chronic fatigue syndrome (Acute) Multiple lipomas (Acute) History of diverticulitis (Acute) Raynaud's disease (Acute) Lactose intolerance (Acute) Nephrolithiasis (Acute) Migraines (Acute) Asthma (Acute) Past Medical History Medical History (Updated 07/17/25 @ 09:23 by Sruthi Thompson RN) Diverticulitis Asthma Hx of renal calculi Pancreatic insufficiency Ectopic Family History Family History Mother Kidney malignant neoplasm Maternal Grandfather Esophageal cancer Maternal Uncle Leukemia Maternal Uncle Skin cancer Maternal Aunt History of hysterectomy Surgical History Surgical History (Updated 07/17/25 @ 09:20 by Sruthi Thompson RN) History of anal fistulotomy (04/2024) S/P excision of lipoma H/O wisdom tooth extraction History of section Social History Social History Are you a primary career development manager to a significant other at home: Yes (children) Do you presently have visiting nurse or other home services: No Alcohol intake: current Alcohol intake frequency: holidays/special occasions only Patient Tobacco Use Status: Never used Tobacco Use of substances other than those prescribed or required for medical reasons: No Have you been hit, kicked, punched, or otherwise hurt by someone within the past year? If so, by whom?: No Are you DNR?: No Advance Directives: No Advance Directives Information Provided: Yes Advance Directives on File: No FDLMP: 06/19/2025 : No Poor oral hygiene: No Meds Allergies Allergy/AdvReac Type Severity Reaction Status Date / Time metronidazole (From Flagyl) Allergy Intermediate Rash Verified 07/10/25 16:33 sulfamethoxazole (From Allergy Intermediate Rash Verified 07/10/25 16:33 Bactrim) trimethoprim (From Bactrim) Allergy Intermediate Rash Verified 07/10/25 16:33 peppermint AdvReac Intermediate Blister Verified 07/10/25 16:33 ERYTHROMYCIN Allergy Severe Anaphylaxis Uncoded 07/10/25 16:33 iodine contrast dye Allergy Severe Hives Uncoded 07/10/25 16:33 TINCTURE OF BENZOIN Allergy Intermediate Rash Uncoded 07/10/25 16:33 Home Medications ?Medication ?Instructions ?Recorded ?Confirmed ?Last Taken ?Type Benefiber (guar gum) DAILY 07/10/25 Unknown History loperamide 2 mg capsule (Imodium 2 mg PO Q6H PRN Diarrhea 07/10/25 07/10/25 Unknown History A-D) Exam Height,Weight and Vital Signs: Height 5 ft 4 in Weight 57.606 kg Assessment and Plan Assessment Anesthesia Assessment: Chart Reviewed Documented by User: Rufina Vasques MD 07/17/25 11:15 [facility] Past Medical History Medical History (Updated 07/17/25 @ 09:23 by Sruthi Thompson RN) Diverticulitis Asthma Hx of renal calculi Pancreatic insufficiency Ectopic Family History Family History Mother Kidney malignant neoplasm Maternal Grandfather Esophageal cancer Maternal Uncle Leukemia Maternal Uncle Skin cancer Maternal Aunt History of hysterectomy Family history of problems with anesthesia: No Surgical History Surgical History (Updated 07/17/25 @ 09:20 by Sruthi Thompson RN) History of anal fistulotomy (04/2024) S/P excision of lipoma H/O wisdom tooth extraction History of section History of Problems with Anesthesia: No Social History Social History Are you a primary career development manager to a significant other at home: Yes (children) Do you presently have visiting nurse or other home services: No Alcohol intake: current Alcohol intake frequency: holidays/special occasions only Patient Tobacco Use Status: Never used Tobacco Use of substances other than those prescribed or required for medical reasons: No Have you been hit, kicked, punched, or otherwise hurt by someone within the past year? If so, by whom?: No Are you DNR?: No Advance Directives: No Advance Directives Information Provided: Yes Advance Directives on File: No FDLMP: 06/19/2025 : No Poor oral hygiene: No Meds Allergies Allergy/AdvReac Type Severity Reaction Status Date / Time metronidazole (From Flagyl) Allergy Intermediate Rash Verified 07/10/25 16:33 sulfamethoxazole (From Allergy Intermediate Rash Verified 07/10/25 16:33 Bactrim) trimethoprim (From Bactrim) Allergy Intermediate Rash Verified 07/10/25 16:33 peppermint AdvReac Intermediate Blister Verified 07/10/25 16:33 ERYTHROMYCIN Allergy Severe Anaphylaxis Uncoded 07/10/25 16:33 iodine contrast dye Allergy Severe Hives Uncoded 07/10/25 16:33 TINCTURE OF BENZOIN Allergy Intermediate Rash Uncoded 07/10/25 16:33 Home Medications ?Medication ?Instructions ?Recorded ?Confirmed ?Last Taken ?Type Benefiber (guar gum) DAILY 07/10/25 Unknown History loperamide 2 mg capsule (Imodium 2 mg PO Q6H PRN Diarrhea 07/10/25 07/10/25 Unknown History A-D) Exam Airway Mallampati Class: II TM Dist: >3cm Neck ROM: Full Heart: rrr Lungs: cta Assessment and Plan Assessment Anesthesia Assessment: Anesthesia Plan Discussed Final Anesthetic Review Family History of Problems with Anesthesia: No History of Problems with Anesthesia: No NPO: Yes ASA Class: II Final Preanesthetic Review: No Changes in Pt Med Stat, Meds/Allgs Chart Reviewed and Consent Obtained/Reviewed Patient Risk: Low Procedure Risk: Low Anesthetic Plan Anesthetic Plan: MAC: Disposition: Standard PACU
--- NOTE | 2025-07-17 09:07 | MHC.SHP ---
Pre-Procedural Eval Section A - 24 Hr Update-Section A only Date of Service: 07/17/25 The patient is an INPATIENT: No The patient has been examined within 24 hours of the surgical procedure. The History & Physical has been completed within 30 days and I have reviewed it.: No Section B - Complete if H&P > 30 days Chief Complaint: chronic diarrhea Relevant Family History (Specify if Yes): No Relevant Social History: None Present Medications: see Short Stay Collaborative assessment Medical History: Significant History (Ectopic ) History of Previous Operations: Relevant previous surgery/procedure and date(s) (S/P excision of lipoma H/O wisdom tooth extraction History of section) Allergies: Allergies Allergy/AdvReac Type Severity Reaction Status Date / Time metronidazole (From Flagyl) Allergy Intermediate Rash Verified 07/10/25 16:33 sulfamethoxazole (From Allergy Intermediate Rash Verified 07/10/25 16:33 Bactrim) trimethoprim (From Bactrim) Allergy Intermediate Rash Verified 07/10/25 16:33 peppermint AdvReac Intermediate Blister Verified 07/10/25 16:33 ERYTHROMYCIN Allergy Severe Anaphylaxis Uncoded 07/10/25 16:33 iodine contrast dye Allergy Severe Hives Uncoded 07/10/25 16:33 TINCTURE OF BENZOIN Allergy Intermediate Rash Uncoded 07/10/25 16:33 Review of Systems Sugical H&P ROS: Negative: Constitution, Cardiovascular and Respiratory and Yes, Specify: Gastrointestinal (Chronic diarrhea) Exam Surgical H&P Exam: Normal: Heart, Normal: Lungs, Normal: Extremities and Normal: Abdomen Plan Diagnosis/Plan: Unchanged I have reviewed the history and physical and performed a pertinent physical examination on my patient. No changes have occurred unless specified. Time Spent With Patient Time: Total time managing care of this patient today ____ minutes.
[2025-07-17 09:25] VITALS: BMI 22.4
[2025-07-17 09:27] VITALS: BP 114/62; PULSE 74; RESP 16; TEMP 36.6; O2SAT 97
[2025-07-17] MEDS: Lactated Ringers 1,000 ML 100 ML IVCONT (09:38)
[2025-07-17 09:43] LABS: UPreg QC Valid YES
[2025-07-17 12:05] VITALS: BP 98/54; PULSE 77; RESP 16; TEMP 36.6; O2SAT 100
--- NOTE | 2025-07-17 12:05 | HO.OPN-COLON ---
Colonoscopy Operative Note Operative Note Date of Service: 07/17/25 Narrative: COLONOSCOPY TILL CECUM WITH BIOPSIES, SNARE POLYPECTOMY, SUBMUCOSAL INJECTION AND HEMOCLIP PLACEMENT Pre-op diagnosis: Colon cancer screening, chronic diarrhea. Post-op diagnosis:? Colon polyps, Diverticulosis, hemorrhoids ? Endoscopist:? Hammad Youssef MD Anesthesia:?MAC Consent: Indications for the procedure and potential complications of bleeding, perforation, reaction to medications and missed diagnosis were discussed with the patient and informed consent was obtained. Instrument: Olympus PCF H 190 L variable stiffness pediatric colonoscope Monitoring: Vital signs and clinical assessment, intermittent blood pressure monitoring, continuous EKG monitoring, Pulse oximetry and Carbon Dioxide monitoring were done throughout the procedure. Please see anesthesia flowsheet. Colon withdrawl time was 30 minutes. Procedure: The patient was placed in the left lateral decubitis position and pre-procedure medications were administered. After a digital rectal examination of the ano-rectum, the video colonoscope was inserted into the rectum and advanced through the colon to the cecum. The colonoscope was slowly withdrawn in a retrograde panoramic fashion and the colon mucosa was carefully examined including a retroflexed view of the rectum. Findings and interventions are described below. Procedure Difficulty: without difficulty Findings: Terminal Ileum: Distal 5 cm was examined and appeared normal - random biopsies were obtained Cecum: Normal Ascending Colon: A 5-6 mm sessile polyp in the mid AC - removed with a cold snare. Transverse Colon: A 2.5 cms x 2 cms flat polyp at 65 cms. Polyp was raised with 3 cc of Eleview and removed with a stiff hot snare. Polypectomy site was closed with 1 hemoclip and marked with Ame ink. A 12 mm sessile polyp at 60 cms - removed with a stiff hot snare. Descending Colon: Moderate diverticulosis Sigmoid Colon: Moderate diverticulosis Rectum: Normal Ano-rectum: Small internal hemorrhoids Colon preparation: Good after copious irrigation. There was some adherent stools in the left colon which could not be flushed despite copious irrigation [place] Bowel Preparation Scale Right colon; 2 Transverse colon: 2 Left colon; 1 - 2 (0 = Unprepared colon segment with mucosa not seen due to solid stool that cannot be cleared. 1 = Portion of mucosa of the colon segment seen, but other areas of the colon segment not well seen due to staining, residual stool and/or opaque liquid. 2 = Minor amount of residual staining, small fragments of stool and/or opaque liquid, but mucosa of colon segment seen well. 3 = Entire mucosa of colon segment seen well with no residual staining, small fragments of stool or opaque liquid) Impression and Post Procedure Diagnosis: Colonoscopy Findings: Three small to medium sized polyps were removed Random biopsies were obtained from the TI, right and left colon. Moderate diverticulosis seen in the left colon Small hemorrhoids on retroflexed exam. Plan: Pt has a FU appointment on 08/14/25 with Nancy Kilgore NP, Repeat Colonoscopy in 1 year if polyps are adenomatous (to check polypectomy site in the transverse colon) and 10 year if polyps are hyperplastic. Advise Dulcolax 10 mg daily for 5 days prior to next colonoscopy appointment due to suboptimal prep in the left colon. Above findings were reviewed with the patient and relevant handouts were given and the discharge area. BIOPSIES SHOWED: A. Terminal ileum, biopsy: Ileal mucosa with no specific change. B. Colon, ascending, polyp: Tubular adenoma; negative for high-grade dysplasia and carcinoma. C. Colon, right, biopsy: Colonic mucosa with occasional pigmented lamina propria macrophages, otherwise no specific change; no evidence of microscopic colitis. D. Colon, at 65 cm, polyp: Serrated polyp with focal features of traditional serrated adenoma; negative for high-grade dysplasia and carcinoma. E. Colon, transverse, polyp: Tubular adenoma; negative for high-grade dysplasia and carcinoma. F. Colon, left, biopsy: Colonic mucosa with lymphoid aggregate and no specific change; no evidence of microscopic colitis Letter sent with biopsy results. Pt was placed on the colonoscopy recall list for repeat colon in 1 year.
[2025-07-17 12:20] VITALS: BP 106/66; PULSE 76; RESP 16; O2SAT 100
[2025-07-17 12:35] VITALS: BP 114/73; PULSE 66; RESP 16; TEMP 36.6; O2SAT 100
== END 2025-07-17 13:02 | disposition home or self-care (01) ==
PROVIDERS: Nurse Practitioner; PCP Family Medicine; Visit Provider Internal Medicine Gastroenterology
PROC: 0DJD8ZZ Inspection of Lower Intestinal Tract, Via Natural or Artificial Opening Endoscopic (ICD-10-PCS; CPT 45378; principal; 2025-07-17 10:20)
DX: R19.7 Diarrhea, unspecified (principal); E73.9 Lactose intolerance, unspecified; K86.89 Other specified diseases of pancreas; Z87.19 Personal history of other diseases of the digestive system; Z83.3 Family history of diabetes mellitus; K57.30 Diverticulosis of large intestine without perforation or abscess without bleeding; D12.2 Benign neoplasm of ascending colon; D12.3 Benign neoplasm of transverse colon
CPT/HCPCS: 45384; 45385; 45380; 45381; 81025; 88305; J2003; J2704

== ENCOUNTER → 2025-07-17 08:46 | Outpatient (BNV) | payer BC, SELFPAY | PROVIDERS: PCP Family Medicine; Visit Provider Internal Medicine Gastroenterology | DX: Z12.11 Encounter for screening for malignant neoplasm of colon (principal); D12.2 Benign neoplasm of ascending colon; D12.3 Benign neoplasm of transverse colon; K57.90 Diverticulosis of intestine, part unspecified, without perforation or abscess without bleeding; K64.8 Other hemorrhoids | CPT/HCPCS: 45381; 45385 ==

== ENCOUNTER 2025-08-14 15:52 | Outpatient (AMB) | payer BC, SELFPAY ==
[2025-08-14 15:57] VITALS: BP 137/72; PULSE 92; BMI 23.5
--- NOTE | 2025-08-14 15:57 | MHC.OFFVIS ---
Vital Signs 08/14/25 15:57 Height 5 ft 4 in Weight 136 lb 10.986 oz BMI 23.5 BP 137/72 Blood Pressure Location Lt brachial Position Sitting Pulse 92 Intake Visit Reasons: s/p colonoscopy Intake Note: Ana in office today s/p colonoscopy. CC: Patient reports that she feels like she's not back to her normal bowel rhythm and is having more constipation. She also reports some nausea in the morning that goes away on its own. Command And Control Officer Required: No Allergies metronidazole (From Flagyl) Allergy (Intermediate, Verified 08/14/25 16:05) Rash sulfamethoxazole (From Bactrim) Allergy (Intermediate, Verified 08/14/25 16:05) Rash trimethoprim (From Bactrim) Allergy (Intermediate, Verified 08/14/25 16:05) Rash peppermint Adverse Reaction (Intermediate, Verified 08/14/25 16:05) Blister ERYTHROMYCIN Allergy (Severe, Uncoded 07/10/25 16:33) Anaphylaxis iodine contrast dye Allergy (Severe, Uncoded 07/10/25 16:33) Hives TINCTURE OF BENZOIN Allergy (Intermediate, Uncoded 07/10/25 16:33) Rash HPI HPI s/p colonoscopy: Details: Assessment & Plan (1) Pancreatic insufficiency: Code(s): K86.89 - Other specified diseases of pancreas Category: Medical (2) Unexplained weight loss: Code(s): R63.4 - Abnormal weight loss Category: Medical (3) Polydipsia: Code(s): R63.1 - Polydipsia Category: Medical Plan She had an episode of diverticulitis, she had a prior bout 10 year ago, She was tx'ed with augmentin by Dr. Parkinson. Had the CT at [facility]. Overall, she is doing very well on the creon, a big change in the positive direction.She is not having to run to the [place] all of the time. However, she has cut out most breads and carbs because these make her feel bloated, and has lost 25 lbs. She says her PCP is concerned about this, but her drastic diet change where she is eating just meats and vegetable is a likely explanation. Her PCP did some blood work, but I do not have access to this to see if TSH was checked or if there are any concerning metabolic factors. Will order TSH, UA, Hga1C as she has a strong FHX of diabetes. However, she is actually feeling well with better energy. She has chronic polydipsia. ROV 6 mos. Orders: Orders TSH reflex Free T4 Today K86.89 - Other specified diseases of pancreas, R63.1 - Polydipsia, R63.4 - Abnormal weight loss Hemoglobin A1c Today K86.89 - Other specified diseases of pancreas, R63.1 - Polydipsia, R63.4 - Abnormal weight loss UA CC w/rflx Micro + Cult Today R63.1 - Polydipsia, R63.4 - Abnormal weight loss Medications: New sod sulf-pot chloride-mag sulf 1.479-0.188- 0.225 gram (Sutab) PO PER PKG DIR for colonoscopy prep 24 tabs 0RF LABS: Laboratory Tests 02/13/25 15:58 Hemoglobin A1c % 5.1 TSH 3.20 02/13/25-[address]: Genesis Parkinson MD ORDERED: [facility] w Micros QUERIES: Source: Urine, Clean Catch Test Result Flag Reference Ur Color Yellow Ur Appear Clear PH 6.5 5.0-9.0 Ur Glu Negative Negative mg/dL Urine Blood Moderate (2+) H Negative Spec [place] Ur 1.020 1.005-1.025 Urine Protein Trace Neg-Trace mg/dL Urine Ketones 15 Negative mg/dL Ur Nitrite Negative Negative Ur Moni Esterase Negative Negative Ur RBC 11-20 H 0-2 /HPF Ur WBC 0-5 0-5 /HPF Ur Squam Epi 0-2 0-2 /HPF Ur Bact None Seen None Seen Ur Hyaline Denture Technician 0-2 0-2 /LPF COLONOSCOPY 07/17/2025 Findings: Terminal Ileum: Distal 5 cm was examined and appeared normal - random biopsies were obtained Cecum: Normal Ascending Colon: A 5-6 mm sessile polyp in the mid AC - removed with a cold snare. Transverse Colon: A 2.5 cms x 2 cms flat polyp at 65 cms. Polyp was raised with 3 cc of Eleview and removed with a stiff hot snare. Polypectomy site was closed with 1 hemoclip and marked with Ame ink. A 12 mm sessile polyp at 60 cms - removed with a stiff hot snare. Descending Colon: Moderate diverticulosis Sigmoid Colon: Moderate diverticulosis Rectum: Normal Ano-rectum: Small internal hemorrhoids Impression and Post Procedure Diagnosis: Colonoscopy Findings: Three small to medium sized polyps were removed Random biopsies were obtained from the TI, right and left colon. Moderate diverticulosis seen in the left colon Small hemorrhoids on retroflexed exam. Plan: Pt has a FU appointment on 08/14/25 with Nancy Kilgore NP, Repeat Colonoscopy in 1 year if polyps are adenomatous (to check polypectomy site in the transverse colon) and 10 year if polyps are hyperplastic. Advise Dulcolax 10 mg daily for 5 days prior to next colonoscopy appointment due to suboptimal prep in the left colon. Above findings were reviewed with the patient and relevant handouts were given and the discharge area. BIOPSIES SHOWED: A. Terminal ileum, biopsy: Ileal mucosa with no specific change. B. Colon, ascending, polyp: Tubular adenoma; negative for high-grade dysplasia and carcinoma. C. Colon, right, biopsy: Colonic mucosa with occasional pigmented lamina propria macrophages, otherwise no specific change; no evidence of microscopic colitis. D. Colon, at 65 cm, polyp: Serrated polyp with focal features of traditional serrated adenoma; negative for high-grade dysplasia and carcinoma. E. Colon, transverse, polyp: Tubular adenoma; negative for high-grade dysplasia and carcinoma. F. Colon, left, biopsy: Colonic mucosa with lymphoid aggregate and no specific change; no evidence of microscopic colitis Letter sent with biopsy results. Pt was placed on the colonoscopy recall list for repeat colon in 1 year. TODAY'S VISIT [facility] Medical History History of diverticulitis Diverticulitis Asthma Hx of renal calculi Pancreatic insufficiency Ectopic Surgical History History of anal fistulotomy (04/2024) S/P excision of lipoma H/O wisdom tooth extraction History of section Family History Mother Kidney malignant neoplasm Maternal Grandfather Esophageal cancer Maternal Uncle Leukemia Maternal Uncle Skin cancer Maternal Aunt History of hysterectomy Social History Are you a primary healthcare consulting manager to a significant other at home: Yes (children) Do you presently have visiting nurse or other home services: No Alcohol intake: current Alcohol intake frequency: holidays/special occasions only Patient Tobacco Use Status: Never used Tobacco Review of Systems Const Denies fatigue, Denies fever(s), Denies night sweats, Denies poor appetite and Denies weight loss Eyes Reports requires corrective lenses ENT Reports Normal hearing present, Denies dental pain, Denies dysphagia, Denies hearing loss, Denies mouth pain, Denies odynophagia, Denies throat swelling, Denies tongue swelling and Reports other (Dentition adequate) GI Details: Denies abdominal pain, Denies melena, Denies bloating, Denies hematochezia, Denies constipation, Denies GI cramping, Denies dysphagia, Denies excessive flatus, Denies early satiety, Denies heartburn, Denies diarrhea, Denies nausea, Denies odynophagia, Denies vomiting and Denies hematemesis Skin/Breast Denies pruritus, Denies lesions, Denies rash and Denies jaundice Neuro Reports Normal hearing present and Denies Abnormal speech present Endo Denies fatigue Aller/Immun Denies throat swelling and Denies tongue swelling Physical Exam Vital Signs: Last Vital Signs Pulse 92 08/14/25 15:57 BP 137/72 08/14/25 15:57 BMI result Body Mass Index 23.5 Const General: cooperative, no acute distress, well developed and well groomed Nutritional Appearance: well nourished, obese and overweight Orientation/consciousness: oriented to person, oriented to place and oriented to time Limitations: No language barrier, ambulation with cane, ambulation with walker and wheelchair HEENT Head: Yes normocephalic and Yes atraumatic Eyes General: appearance normal, both eyes and all related structures Pupils: Equal, round and reactive pupils present Neck Neck: Yes normal visual inspection and Yes no lymphadenopathy Thyroid: Thyroid normal Resp Effort & Inspection: normal respiratory effort and able to speak in complete sentences Auscultation: clear to auscultation bilaterally Cardio Rate: regular rate Rhythm: regular rhythm Heart sounds: Normal, physiologic split S2 sound present Peripheral pulses: radial pulses present and posterior tibial pulses present GI Inspection: No distended and No Abdominal panniculus present Palpation (GI): Soft to palpation, nontender, no guarding, not rigid, No hepatosplenomegaly present and Hepatosplenomegaly present Percussion: Yes normal to percussion Auscultation: normal bowel sounds Rectal Exam - Female: deferred Skin General skin exam: no rashes or lesions noted, turgor normal, skin not dry, no jaundice, No spider nevi and no striae Rashes: no rashes Nails: normal Neuro General: oriented to person, oriented to place and oriented to time Cranial nerves: Yes Equal, round and reactive pupils present and Yes Normal hearing present Speech: No Abnormal speech present Extrem General: Yes normal to inspection, No clubbing, No cyanosis and No edema Psych Thought process: Normal thought process present and not confabulating Thought content: Normal thought content present Insight: Good insight present (Psych) Judgement: Good judgement present (Psych) Results Reviewed Results Reviewed: Laboratory Tests 02/13/25 15:58 Hemoglobin A1c % 5.1 TSH 3.20 02/13/25-[address]: Genesis Parkinson MD ORDERED: [facility] w Micros QUERIES: Source: Urine, Clean Catch Test Result Flag Reference Ur Color Yellow Ur Appear Clear PH 6.5 5.0-9.0 Ur Glu Negative Negative mg/dL Urine Blood Moderate (2+) H Negative Spec [place] Ur 1.020 1.005-1.025 Urine Protein Trace Neg-Trace mg/dL Urine Ketones 15 Negative mg/dL Ur Nitrite Negative Negative Ur Moni Esterase Negative Negative Ur RBC 11-20 H 0-2 /HPF Ur WBC 0-5 0-5 /HPF Ur Squam Epi 0-2 0-2 /HPF Ur Bact None Seen None Seen Ur Hyaline Denture Technician 0-2 0-2 /LPF COLONOSCOPY 07/17/2025 Findings: Terminal Ileum: Distal 5 cm was examined and appeared normal - random biopsies were obtained Cecum: Normal Ascending Colon: A 5-6 mm sessile polyp in the mid AC - removed with a cold snare. Transverse Colon: A 2.5 cms x 2 cms flat polyp at 65 cms. Polyp was raised with 3 cc of Eleview and removed with a stiff hot snare. Polypectomy site was closed with 1 hemoclip and marked with Ame ink. A 12 mm sessile polyp at 60 cms - removed with a stiff hot snare. Descending Colon: Moderate diverticulosis Sigmoid Colon: Moderate diverticulosis Rectum: Normal Ano-rectum: Small internal hemorrhoids Impression and Post Procedure Diagnosis: Colonoscopy Findings: Three small to medium sized polyps were removed Random biopsies were obtained from the TI, right and left colon. Moderate diverticulosis seen in the left colon Small hemorrhoids on retroflexed exam. Plan: Pt has a FU appointment on 08/14/25 with Nancy Kilgore NP, Repeat Colonoscopy in 1 year if polyps are adenomatous (to check polypectomy site in the transverse colon) and 10 year if polyps are hyperplastic. Advise Dulcolax 10 mg daily for 5 days prior to next colonoscopy appointment due to suboptimal prep in the left colon. Above findings were reviewed with the patient and relevant handouts were given and the discharge area. BIOPSIES SHOWED: A. Terminal ileum, biopsy: Ileal mucosa with no specific change. B. Colon, ascending, polyp: Tubular adenoma; negative for high-grade dysplasia and carcinoma. C. Colon, right, biopsy: Colonic mucosa with occasional pigmented lamina propria macrophages, otherwise no specific change; no evidence of microscopic colitis. D. Colon, at 65 cm, polyp: Serrated polyp with focal features of traditional serrated adenoma; negative for high-grade dysplasia and carcinoma. E. Colon, transverse, polyp: Tubular adenoma; negative for high-grade dysplasia and carcinoma. F. Colon, left, biopsy: Colonic mucosa with lymphoid aggregate and no specific change; no evidence of microscopic colitis Letter sent with biopsy results. Pt was placed on the colonoscopy recall list for repeat colon in 1 year. Assessment & Plan Assessment & Plan (1) Tubular adenoma of colon: Comment: 07/2025 SCOPE= 3 LARGE TA IS REPEAT IN 1 YEAR Code(s): D12.6 - Benign neoplasm of colon, unspecified Category: Medical (2) Pancreatic insufficiency: Code(s): K86.89 - Other specified diseases of pancreas Category: Medical (3) Diarrhea: Code(s): R19.7 - Diarrhea, unspecified Category: Medical Plan History of Present Illness - The patient is a 50-year-old female presenting with follow-up care for colonoscopy findings and post-procedure digestive concerns. - She has a history of precancerous colon polyps discovered during her recent colonoscopy, necessitating close future surveillance. - Post-procedure, she experienced alternating bowel habits, with initial diarrhea succeeded by constipation, posing functional discomfort. - The patient?s pancreatic insufficiency, managed through Creon, likely exacerbates bowel irregularities. - Dietary history shows reintroduction of certain starches; lactose intolerance is managed with avoidance strategies. Nutrition The patient avoids milk due to lactose intolerance, managing with lactose-free products and consuming cheese without issue. She uses Creon for pancreatic insufficiency. Her diet reintroduction post-colonoscopy includes some starches previously avoided. She continues to adjust her fiber intake to address altered bowel habits, taking Benefiber twice daily as recommended. Plan Patient was informed and verbally consented to the use of an ambient scribe for clinic note documentation during this visit. 1. Precancerous Colon Polyps - Schedule repeat colonoscopy in one year to ensure complete excision and monitor. 2. Pancreatic Insufficiency - Continue Creon, increase fiber intake to twice a day to manage bowel changes. 3. Lactose Intolerance - Advise lactose avoidance, consider lactase enzyme supplements. 4. Irritable Bowel Due To Colonoscopy Prep - Start twice daily fiber supplement, probiotic to rebalance gut anitha. Plan to reevaluate in six weeks. Discussion Notes I discussed thoroughly with the patient that the colonoscopy revealed three precancerous polyps, emphasizing the importance of vigilant surveillance with a follow-up colonoscopy in one year. We examined possible genetic factors and reasons for the earlier onset of polyp formation. A comprehensive update on her gastrointestinal management was provided, specifically focusing on how the disturbance caused by the colonoscopy preparation may have inflamed her irritable bowel symptoms. The ongoing use of Creon and planned dietary modifications to alleviate discomfort were stressed. We opted to increase her fiber intake for managing current bowel issues and supplement with probiotics. Monitoring her condition and attending a follow-up six weeks from now will be critical for evaluating improvement. Patient Instructions - Schedule your follow-up colonoscopy in one year. - Take Benefiber twice daily to manage bowel routine. - Start using a probiotic supplement like [employer]. - Avoid milk, and use lactose-free products to manage lactose intolerance. - Continue taking Creon as directed. - Return for a follow-up visit in six weeks to reassess bowel condition. Orders: Referrals GI Procedure Notification D12.6 - Benign neoplasm of colon, unspecified, K86.89 - Other specified diseases of pancreas, R19.7 - Diarrhea, unspecified Medications: New bisacodyl (Dulcolax (bisacodyl)) 10 mg (2 x 5 mg) PO BEDTIME 4 tabs 0RF 2 days peg 3350-electrolytes 236-22.74-6.74 -5.86 gram (Golytely) until fecal effluent is clear; do not exceed a total volume of 2,000 mL 240 mL PO Q10M 4,000 mL 0RF 1 day Z12.11 - Encounter for screening for malignant neoplasm of colon Coding Level of Care Code Est Pt Level 4 (49929) Diagnoses Tubular adenoma of colon D12.6 Pancreatic insufficiency K86.89 Diarrhea R19.7 Time Spent (min) 35
--- OUTSIDE RECORDS SUMMARY | 2025-08-14 16:46 | XMS_ITS | Clinical Summary ---
Author Organization [facility] Address [address] [place] [address] Care Team Providers Care Hand Laster Name Role Phone Pcp, No Primary Care [...] (Ages 21-65) 01/02/1996 Mammogram 2015 Colonoscopy 01/02/2020 RSV Vaccine 50 years and old er and Patients (1 - Risk 50-74 years 1-dose series) 2025 Zoster (Shingles) Vaccine (1 of 2) 2025 Influenza Vaccine 05/08/2025 10/06/2013, 07/11/2012 COVID-19 Vaccine ( - season) 2025 Insurance [facility] Care Teams Hand Laster Relationship Specialty Start Date End Date Pcp, No PCP - General General Medicine 08/03/24
--- OUTSIDE RECORDS SUMMARY | 2025-08-14 16:46 | XMS_ITS | Encounter Summary ---
Author Organization [facility] Address [address] [place] [address] Care Team Providers Care Nipple Machine Operator Name Role Phone Pcp, No Primary Care Provider Unavailabl e Encounter Details Date Type Department Care Team (Late st Contact Info) Description 08/03/2024 Scanned Document [address] [place] [id number] Provider, Generic Social History Tobacco Use [...] on filedocumented in this encounter Care Teams Nipple Machine Operator Relationship Specialty Start Date End Date Pcp, Esha PCP - General General Medicine 08/03/24 documented as of this encounter
--- OUTSIDE RECORDS SUMMARY | 2025-08-14 16:46 | XMS_ITS ---
Author Name [facility] Organization Unknown Encounters Encounter Type Encounter Reason Primary Diagnosis Location Date Ambulatory Injury of conjunctiva and corneal abrasion without foreign body, left eye, initial encounter Injury of conjunctiva and corneal abrasion without foreign body, left eye, initial encounter [facility] 08/03/2024 Care Team Organization Name Specialty Phone Email Start Date End Da te [facility] 08/06/2024 12/24/2024 [facility] 08/03/2024 [facility] NO PCP Primary Care 08/03/2024 [facility] 08/02/2023 05/28/2025
== END 2025-08-14 16:40 | disposition home or self-care (01) ==
LOC: HO.HGI 15:53
PROVIDERS: PCP Family Medicine; Visit Provider Nurse Practitioner
DX: D12.6 Benign neoplasm of colon, unspecified (principal); K86.89 Other specified diseases of pancreas; R19.7 Diarrhea, unspecified
CPT/HCPCS: 99214